=== PATIENT | female | born 1985 | race American Indian/Alaskan Native ===

== ENCOUNTER 2016-11-02 14:03 | Emergency (ER) | payer MEDICAID ==
[2016-11-02 19:18] VITALS: BP 122/82
== END 2016-11-02 19:25 | disposition left against medical advice (07) ==
LOC: ED 14:03
DX: G43.909 Migraine, unspecified, not intractable, without status migrainosus (principal); R50.9 Fever, unspecified; Z53.21 Procedure and treatment not carried out due to patient leaving prior to being seen by health care provider